=== PATIENT | male | born 1965 | race Caucasian/White ===

== ENCOUNTER 2018-07-07 09:20 | Inpatient (IN) | payer OTHER ==
[2018-07-07 12:41] LABS: IMMEDIATE SPIN CROSSMATCH 1 4
[2018-07-07] MEDS ORDERED: MIDAZOLAM 1 MG/ML 2 ML INJ (13:21)
[2018-07-07] MEDS ORDERED: LIDOCAINE 2% (SDV) 5 ML INJ (14:28)
[2018-07-07] MEDS ORDERED: CEFAZOLIN 1 GM INJ (14:28)
[2018-07-07] MEDS ORDERED: PROPOFOL 20 ML (14:28)
[2018-07-07] MEDS ORDERED: ONDANSETRON 4 MG INJ (14:28)
[2018-07-07] MEDS ORDERED: FENTAnyl 50 MCG/ML VIAL IV (15:00)
[2018-07-07] MEDS ORDERED: DIPHENHYDRAMINE 50 MG INJ IV (15:00)
[2018-07-07] MEDS ORDERED: HYDROmorphONE 1 MG/5 ML IV SYRINGE IV (15:00)
[2018-07-07] MEDS: D5W-0.45 NACL + KCL 20 MEQ 1,000 ML IV ×2 (15:01→22:01)
[2018-07-07] MEDS: MEPERIDINE 25 MG INJ IV (15:28)
[2018-07-07] MEDS: ONDANSETRON 4 MG INJ IV (15:28)
[2018-07-07] MEDS: HYDROmorphONE 1 MG/5 ML IV SYRINGE IV ×2 (15:28→18:28)
[2018-07-07] MEDS ORDERED: morphine 2 MG INJ IV (15:30)
[2018-07-07] MEDS ORDERED: CEFAZOLIN 1 GM INJ IM (15:30)
[2018-07-07] MEDS ORDERED: ACETAMINOPHEN 1000MG/100ML IV 100 ML IVPB (15:30)
[2018-07-07] MEDS ORDERED: ONDANSETRON 4 MG INJ IV (16:30)
[2018-07-07] MEDS ORDERED: NACL 0.9% 3 ML SYG IV (16:30)
[2018-07-07] MEDS ORDERED: HYDROCODONE/APAP (5/325) TAB PO (16:30)
[2018-07-07] MEDS: CEFAZOLIN 1 GM/50 ML (PMX) 50 ML IVPB ×2 (17:07→23:43)
[2018-07-07 17:19] LABS: ADD MAN DIFF? NO
[2018-07-07 17:23] LABS: WHITE BLOOD COUNT 10.5 10^3/ul (4.8-10.8)
[2018-07-07 17:23] LABS: ABNORMAL IP MESSAGE 1; BASOPHIL # 0.1 10^3/ul (0.0-0.1); BASOPHILS % 0.5 % (0.0-2.0); EOSINOPHILS # 0.2 10^3/ul (0.0-0.5); EOSINOPHILS % 1.4 % (0.0-7.0); HEMATOCRIT 24.9 % (42.0-52.0); HEMOGLOBIN 7.1 g/dl (14.0-18.0); LYMPHOCYTES % 18.8 % (15.0-51.0); MEAN CORPUSCULAR HEMOGLOBIN 20.2 pg (29.0-33.0); MEAN CORPUSCULAR HGB CONC 28.5 g/dl (32.0-37.0); MEAN CORPUSCULAR VOLUME 70.9 fl (82.0-101.0); MEAN PLATELET VOLUME 9.8 fl (7.4-10.4); MONOCYTES % 9.4 % (0.0-11.0); NEUTROPHIL # 7.3 10^3/ul (1.6-7.5); NEUTROPHILS % 69.3 % (39.0-77.0); PLATELET COUNT 466 10^3/UL (140-415); POSITIVE DIFF @See below; RED BLOOD COUNT 3.51 10^6/ul (4.70-6.10); RED CELL DISTRIBUTION WIDTH 23.3 % (11.5-14.5)
[2018-07-07 17:31] LABS: HOLD TRANSMISSIONS 1
[2018-07-07 17:43] LABS: ALANINE AMINOTRANSFERASE 21 IU/L (13-69); ALBUMIN 3.5 g/dl (3.3-4.9); ALBUMIN/GLOBULIN RATIO 1.09; ALKALINE PHOSPHATASE 52 IU/L (42-121); ANION GAP 7 (5-13); ASPARTATE AMINO TRANSFERASE 16 IU/L (15-46); BILIRUBIN,INDIRECT 0.5 mg/dl (0-1.1); BILIRUBIN,TOTAL 0.5 mg/dl (0.2-1.3); BLOOD UREA NITROGEN 13 mg/dl (7-20); CALCIUM 8.6 mg/dl (8.4-10.2); CARBON DIOXIDE 23 mmol/L (21-31); CHLORIDE 111 mmol/L (97-110); CREATININE 0.89 mg/dl (0.61-1.24); Estimated GFR > 60 mL/min (>60); GLUCOSE 97 mg/dl (70-220); POTASSIUM 4.4 mmol/L (3.5-5.1); SODIUM 141 mmol/L (135-144); TOTAL PROTEIN 6.7 g/dl (6.1-8.1)
[2018-07-07] MEDS: morphine 2 MG INJ IV (20:54)
[2018-07-08] MEDS: morphine 2 MG INJ IV (01:56)
[2018-07-08] MEDS: CEFAZOLIN 1 GM/50 ML (PMX) 50 ML IVPB ×4 (05:47→23:36)
[2018-07-08] MEDS: D5W-0.45 NACL + KCL 20 MEQ 1,000 ML IV (06:11)
[2018-07-08 07:32] LABS: ADD MAN DIFF? NO
[2018-07-08 07:49] LABS: WHITE BLOOD COUNT 13.3 10^3/ul (4.8-10.8)
[2018-07-08 07:49] LABS: ABNORMAL IP MESSAGE 1; BASOPHIL # 0.1 10^3/ul (0.0-0.1); BASOPHILS % 0.4 % (0.0-2.0); EOSINOPHILS # 0.1 10^3/ul (0.0-0.5); HEMATOCRIT 27.8 % (42.0-52.0); HEMOGLOBIN 8.3 g/dl (14.0-18.0); LYMPHOCYTES # 1.5 10^3/ul (0.8-2.9); LYMPHOCYTES % 11.6 % (15.0-51.0); MEAN CORPUSCULAR HEMOGLOBIN 21.8 pg (29.0-33.0); MEAN CORPUSCULAR HGB CONC 29.9 g/dl (32.0-37.0); MEAN CORPUSCULAR VOLUME 73.2 fl (82.0-101.0); MEAN PLATELET VOLUME 9.8 fl (7.4-10.4); MONOCYTE # 1.2 10^3/ul (0.3-0.9); MONOCYTES % 8.6 % (0.0-11.0); NEUTROPHIL # 10.4 10^3/ul (1.6-7.5); NEUTROPHILS % 77.9 % (39.0-77.0); PLATELET COUNT 424 10^3/UL (140-415); POSITIVE DIFF @See below; RED CELL DISTRIBUTION WIDTH 23.1 % (11.5-14.5)
[2018-07-08 07:58] LABS: HEMOGLOBIN A1C 6.1 % (0-5.9)
[2018-07-08 08:04] LABS: ALANINE AMINOTRANSFERASE 21 IU/L (13-69); ALBUMIN 3.3 g/dl (3.3-4.9); ALBUMIN/GLOBULIN RATIO 1.03; ALKALINE PHOSPHATASE 50 IU/L (42-121); ANION GAP 8 (5-13); ASPARTATE AMINO TRANSFERASE 13 IU/L (15-46); BILIRUBIN,INDIRECT 0.6 mg/dl (0-1.1); BILIRUBIN,TOTAL 0.6 mg/dl (0.2-1.3); BLOOD UREA NITROGEN 12 mg/dl (7-20); CALCIUM 8.4 mg/dl (8.4-10.2); CARBON DIOXIDE 25 mmol/L (21-31); CHLORIDE 108 mmol/L (97-110); CREATININE 0.94 mg/dl (0.61-1.24); Estimated GFR > 60 mL/min (>60); GLUCOSE 118 mg/dl (70-220); MAGNESIUM 2.1 mg/dl (1.7-2.5); POTASSIUM 4.5 mmol/L (3.5-5.1); SODIUM 141 mmol/L (135-144); TOTAL PROTEIN 6.5 g/dl (6.1-8.1)
[2018-07-08] MEDS: ACETAMINOPHEN 325 MG TAB PO ×2 (12:29→19:55)
[2018-07-08 17:39] LABS: ADD MAN DIFF? NO
[2018-07-08 17:42] LABS: ABNORMAL IP MESSAGE 1; BASOPHIL # 0.1 10^3/ul (0.0-0.1); BASOPHILS % 0.4 % (0.0-2.0); EOSINOPHILS # 0.2 10^3/ul (0.0-0.5); EOSINOPHILS % 1.6 % (0.0-7.0); HEMATOCRIT 29.3 % (42.0-52.0); HEMOGLOBIN 8.7 g/dl (14.0-18.0); LYMPHOCYTES # 1.8 10^3/ul (0.8-2.9); LYMPHOCYTES % 13.6 % (15.0-51.0); MEAN CORPUSCULAR HEMOGLOBIN 21.5 pg (29.0-33.0); MEAN CORPUSCULAR HGB CONC 29.7 g/dl (32.0-37.0); MEAN CORPUSCULAR VOLUME 72.5 fl (82.0-101.0); MEAN PLATELET VOLUME 8.9 fl (7.4-10.4); MONOCYTE # 1.3 10^3/ul (0.3-0.9); NEUTROPHIL # 9.9 10^3/ul (1.6-7.5); NEUTROPHILS % 73.8 % (39.0-77.0); PLATELET COUNT 393 10^3/UL (140-415); POSITIVE DIFF @See below; RED BLOOD COUNT 4.04 10^6/ul (4.70-6.10); RED CELL DISTRIBUTION WIDTH 23.5 % (11.5-14.5)
[2018-07-08 17:42] LABS: WHITE BLOOD COUNT 13.4 10^3/ul (4.8-10.8)
[2018-07-08 18:11] LABS: ANION GAP 9 (5-13); BLOOD UREA NITROGEN 10 mg/dl (7-20); CARBON DIOXIDE 25 mmol/L (21-31); CHLORIDE 107 mmol/L (97-110); CREATININE 0.84 mg/dl (0.61-1.24); Estimated GFR > 60 mL/min (>60); GLUCOSE 95 mg/dl (70-220); POTASSIUM 4.6 mmol/L (3.5-5.1); SODIUM 141 mmol/L (135-144)
[2018-07-09] MEDS: CEFAZOLIN 1 GM/50 ML (PMX) 50 ML IVPB ×2 (05:21→12:05)
[2018-07-09 09:29] LABS: ADD MAN DIFF? NO
[2018-07-09 09:45] LABS: ABNORMAL IP MESSAGE 1; BASOPHILS % 0.3 % (0.0-2.0); EOSINOPHILS # 0.2 10^3/ul (0.0-0.5); EOSINOPHILS % 1.9 % (0.0-7.0); HEMATOCRIT 29.9 % (42.0-52.0); HEMOGLOBIN 8.9 g/dl (14.0-18.0); LYMPHOCYTES # 1.3 10^3/ul (0.8-2.9); LYMPHOCYTES % 10.5 % (15.0-51.0); MEAN CORPUSCULAR HEMOGLOBIN 21.7 pg (29.0-33.0); MEAN CORPUSCULAR HGB CONC 29.8 g/dl (32.0-37.0); MEAN CORPUSCULAR VOLUME 72.7 fl (82.0-101.0); MEAN PLATELET VOLUME 9.4 fl (7.4-10.4); MONOCYTES % 7.8 % (0.0-11.0); NEUTROPHIL # 9.7 10^3/ul (1.6-7.5); NEUTROPHILS % 78.7 % (39.0-77.0); PLATELET COUNT 426 10^3/UL (140-415); POSITIVE DIFF @See below; RED BLOOD COUNT 4.11 10^6/ul (4.70-6.10); RED CELL DISTRIBUTION WIDTH 24.2 % (11.5-14.5)
[2018-07-09 09:45] LABS: WHITE BLOOD COUNT 12.3 10^3/ul (4.8-10.8)
[2018-07-09 09:55] LABS: ANION GAP 7 (5-13); BLOOD UREA NITROGEN 10 mg/dl (7-20); CALCIUM 8.7 mg/dl (8.4-10.2); CARBON DIOXIDE 27 mmol/L (21-31); CHLORIDE 106 mmol/L (97-110); CREATININE 0.91 mg/dl (0.61-1.24); Estimated GFR > 60 mL/min (>60); GLUCOSE 173 mg/dl (70-220); POTASSIUM 4.1 mmol/L (3.5-5.1); SODIUM 140 mmol/L (135-144)
== END 2018-07-09 17:43 | disposition home or self-care (01) | DRG 464 ==
LOC: SDS 09:20 → REC 15:25 → 2NE 18:40
PROC: 0JBF0ZZ Excision of Left Upper Arm Subcutaneous Tissue and Fascia, Open Approach (ICD-10-PCS; principal; 2018-07-07 12:30)
PROC: 0JB60ZZ Excision of Chest Subcutaneous Tissue and Fascia, Open Approach (ICD-10-PCS; 2018-07-07 12:30)
PROC: 0JXF0ZZ Transfer Left Upper Arm Subcutaneous Tissue and Fascia, Open Approach (ICD-10-PCS; 2018-07-07 12:30)
PROC: 0JX60ZZ Transfer Chest Subcutaneous Tissue and Fascia, Open Approach (ICD-10-PCS; 2018-07-07 12:30)
PROC: 30233N1 Transfusion of Nonautologous Red Blood Cells into Peripheral Vein, Percutaneous Approach (ICD-10-PCS; 2018-07-07 12:30)
PROC: 30233N1 Transfusion of Nonautologous Red Blood Cells into Peripheral Vein, Percutaneous Approach (ICD-10-PCS; 2018-07-07 13:19)
DX: C49.12 Malignant neoplasm of connective and soft tissue of left upper limb, including shoulder (principal); C49.3 Malignant neoplasm of connective and soft tissue of thorax; D50.0 Iron deficiency anemia secondary to blood loss (chronic)
CPT/HCPCS: 36430; 71045; 80048; 80053; 83036; 83735; 85025; 86850; 86900; 86901; 86920; 88307; 88341; 88342; 93005; 99217